=== PATIENT | male | born 1995 | race African-American/Black ===

== ENCOUNTER 2017-06-08 09:48 | Emergency (ER) | payer SELFPAY ==
[2017-06-08 09:52] VITALS: BP 91/84; PULSE 92; RESP 16; TEMP 98.4; O2SAT 99
== END 2017-06-08 10:24 | disposition left against medical advice (07) ==
DX: Z53.21 Procedure and treatment not carried out due to patient leaving prior to being seen by health care provider (principal)

== ENCOUNTER 2017-07-06 11:57 | Emergency (ER) | payer SELFPAY ==
[2017-07-06 12:03] VITALS: BP 96/67; PULSE 81; RESP 18; TEMP 97.9; O2SAT 97
--- NOTE | 2017-07-06 13:17 | EDPHY ---
H & P Smoking Status: Heavy smoker Time Seen by Provider: 07/06/17 13:02 HPI/ROS: CHIEF COMPLAINT: Right radial hand pain HISTORY OF PRESENT ILLNESS: 22-year-old male with prior history of right base of thumb injury a few months ago states that after he was wrestling with a friend the other evening he has been experiencing right 1st metacarpal and 2nd metacarpal pain reproducible with range of motion and positive snuffbox pain. No paresthesia. No sensory motor deficit. No discoloration. No fever no chills. PHYSICAL EXAM (Prior to examination, patient consented to physical exam, hands were washed and my usual and customary physical exam procedures followed) 1) GENERAL: Well-developed, well-nourished, alert and oriented. Appears to be in no acute distress. 2) HEAD: Normocephalic 3) HEENT: Pupils equal, round, reactive to light bilaterally. 4) LUNGS: Breathing comfortably. 5) MUSCULOSKELETAL: Tender to palpation anatomic snuffbox. Soft compartments. Normal coloration. 6) SKIN: normal coloration normal temperature 7) VASCULAR: pulses and cap refill present are brisk 8) NEUROLOGIC: Radial, ulnar, median nerve function intact with no deficits appreciated on exam DIFFERENTIAL DIAGNOSIS: in no particular order including but not limited to fracture, sprain, compartment syndrome Procedure: Splint A Velcro thumb spica splint was applied by ER auto body repair technician. After application of the splint I returned and re-examined the patient. The splint was adequately immobilizing the joint and distal to the splint the patient's circulation and sensation were intact. Patient shows no signs of compartment syndrome. Was given orthopedic precautions. (Will Simons) Constitutional: Initial Vital Signs Temperature (C) 36.6 C 07/06/17 12:01 Heart Rate 81 07/06/17 12:01 Respiratory Rate 18 07/06/17 12:01 Blood Pressure 96/67 L 07/06/17 12:01 O2 Sat (%) 97 07/06/17 12:01 O2 Delivery Mode Room Air Allergies/Adverse Reactions: No Known Allergies Allergy (Verified 07/06/17 12:00) Home Medications: Medication Instructions Recorded NK [No Known Home Meds] 07/06/17 MDM/Departure - [facility] Imaging Results: Imaging Impressions Wrist X-Ray 07/06/17 12:04 Impression: Negative right wrist radiographs. ED Course/Re-evaluation: I discussed limitations of x-ray, discussed that soft tissue injury, ligamentous injury, cannot be ruled out. Stressed the importance of follow-up with Hand surgery. He has been placed in a thumb spica, given referral information, recommend elevation, NSAIDs and NSAID precautions. He feels comfortable being discharged. Usual and customary orthopedic precautions instructions provided (Will Simons) I did not see this patient while he was in the emergency department. However his care was discussed with the PA while the patient was in the department. I agree with treatment plan and management (Ezequiel Burton) - Depart Disposition: Home, Routine, Self-Care Clinical Impression: Pain of right thumb Condition: Good Instructions: Wrist Sprain (ED) Additional Instructions: Return to the ER immediately if you experience discoloration, have worsening pain, numbness, tingling, or any other symptoms that concern you. If you received x-rays in the emergency department today, be advised, that ligamentous , tendon, muscular, and other non-bony injury cannot be fully ruled out. Try to keep your affected extremity elevated above the level of your chest, and keep cold packs on the affected area, for the next 48 hours. Referrals: Ray Gilmore MD [Medical Doctor] - 2-3 days without fail (Dr. Ray Gilmore is a hand surgeon)
== END 2017-07-06 13:10 | disposition home or self-care (01) ==
DX: S69.91XA Unspecified injury of right wrist, hand and finger(s), initial encounter (principal); F17.200 Nicotine dependence, unspecified, uncomplicated; X58.XXXA Exposure to other specified factors, initial encounter; Y99.8 Other external cause status; Y93.72 Activity, wrestling
CPT/HCPCS: L3807

== ENCOUNTER 2018-03-08 11:18 | Emergency (ER) | payer MEDICAID ==
[2018-03-08 11:26] VITALS: BP 98/73
--- NOTE | 2018-03-08 11:46 | EDPHY ---
General Time Seen by Provider: 03/08/18 11:40 Narrative: CHIEF COMPLAINT: Abdominal pain HISTORY OF PRESENT ILLNESS: Patient complains of left-sided abdominal pain that started yesterday morning when he awoke. Severe, left-sided pain. Constant duration. Worse with movement and palpation. Also worse really on his on his left side. Improves at rest and lying on right side. No fever. No nausea or vomiting. Does have some chills. No trauma or injury. No diarrhea but does report constipation of several days. No vomiting. No nausea. No previous abdominal pathology or abdominal surgeries. No other associated complaints or modifying factors REVIEW OF SYSTEMS: Ten systems reviewed and are negative unless otherwise noted in the HPI PCP: None SPECIALISTS: None PAST MEDICAL HISTORY: Denies any medical history PAST SURGICAL HISTORY: No surgical history. SOCIAL HISTORY: Reports occasional marijuana use. FAMILY HISTORY: Noncontributory EXAMINATION General Appearance: Alert, no distress Head: normocephalic, atraumatic Eyes: Pupils equal and round, no conjunctival pallor or injection ENT, Mouth: Mucous membranes moist Neck: Normal inspection, supple, non-tender Respiratory: Lungs are clear to auscultation Cardiovascular: Regular rate and rhythm. No murmur Gastrointestinal: Abdomen is soft and nontender. No tympany. No rigidity. No mass. No guarding. There is [id number] tenderness in the left quadrants. Bowel sounds are symmetric in all 4 quadrants. Back: non-tender, no bony abnormalities Neurological: A&O, nonfocal, normal gait Skin: Warm and dry, no rash. No petechiae or purpura Extremities: Nontender, no pedal edema Psychiatric: Mood and affect normal DIFFERENTIAL DIAGNOSES: Including but not limited to constipation, colitis, diverticulitis, muscular strain, UTI, renal colic MDM: 11:45 a.m. Left-sided abdominal pain and constipation 24 hr. The patient does have tenderness to the left side that is moderate to severe. No CVA tenderness. Vital signs are within normal limits. I have ordered laboratory studies and a KUB to evaluate for constipation possible bowel obstruction. No vomiting. No acute distress. 12:15 p.m. CBC is relatively unremarkable with minimally decreased white blood cell count. Chemistry is within normal limits including lipase and liver function test. X -rays pending Radiology interpretation. 12:30 p.m. Patient re-evaluated. As I enter the room the patient was asking for his IV to be removed. He was verbalizing his dissatisfaction although this was abruptly different from my initial evaluation. I asked him to reconsider to discuss the possibility of CT scan to evaluate his abdominal pain. He refused. He was adamant about having his IV removed. I informed him that we would do so but we need to discussed risks and benefits. We discussed the risk of discharge home without further delineation of his abdominal pain. While I do suspect this is only constipation, he was very tender in the abdomen. I informed that I would like to obtain a CT scan of the abdomen pelvis but he is declining. He would like to be discharged home immediately. We discussed the risk of deterioration , sepsis, perforation. He is willing to assume this risk and would like to be discharged home with instructions of how to improve his constipation. SUPERVISION: This patient was independently evaluated without direct involvement of or examination by the attending physician. - Diagnostics Imaging Results: Imaging Impressions Abdomen X-Ray 03/08/18 11:46 Impression: 1. Moderate constipation, otherwise negative. - History Smoking Status: Former smoker - Objective Vital Signs: Initial Vital Signs Temperature (C) 97.5 F 03/08/18 11:23 Heart Rate 90 03/08/18 11:23 Respiratory Rate 18 03/08/18 11:23 Blood Pressure 98/73 L 03/08/18 11:23 O2 Sat (%) 99 03/08/18 11:23 O2 Delivery Mode Room Air Allergies/Adverse Reactions: No Known Allergies Allergy (Verified 03/08/18 11:23) Home Medications: Medication Instructions Recorded NK [No Known Home Meds] 07/06/17 Laboratory Results: Laboratory Results 03/08/18 11:42 03/08/18 11:42 03/08/18 03/08/18 11:42 11:42 WBC 3.71 10^3/uL L 10^3/uL (3.80-9.50) RBC 5.77 10^6/uL 10^6/uL (4.40-6.38) Hgb 15.7 g/dL g/dL (13.7-17.5) Hct 46.5 % % (40.0-51.0) MCV 80.6 fL L fL (81.5-99.8) MCH 27.2 pg L pg (27.9-34.1) MCHC 33.8 g/dL g/dL (32.4-36.7) RDW 12.6 % % (11.5-15.2) Plt Count 205 10^3/uL 10^3/uL (150-400) MPV 8.8 fL fL (8.7-11.7) Neut % (Auto) 60.4 % % (39.3-74.2) Lymph % (Auto) 29.6 % % (15.0-45.0) [place] % (Auto) 8.9 % % (4.5-13.0) Eos % (Auto) 0.5 % L % (0.6-7.6) Baso % (Auto) 0.3 % % (0.3-1.7) Nucleat RBC Rel Count 0.0 % % (0.0-0.2) Absolute Neuts (auto) 2.24 10^3/uL 10^3/uL (1.70-6.50) Absolute Lymphs (auto) 1.10 10^3/uL 10^3/uL (1.00-3.00) Absolute Monos (auto) 0.33 10^3/uL 10^3/uL (0.30-0.80) Absolute Eos (auto) 0.02 10^3/uL L 10^3/uL (0.03-0.40) Absolute Basos (auto) 0.01 10^3/uL L 10^3/uL (0.02-0.10) Absolute Nucleated RBC 0.00 10^3/uL 10^3/uL (0-0.01) Immature Gran % 0.3 % % (0.0-1.1) Immature Gran # 0.01 10^3/uL 10^3/uL (0.00-0.10) Sodium 139 mEq/L mEq/L (135-145) Potassium 4.0 mEq/L mEq/L (3.5-5.2) Chloride 100 mEq/L mEq/L (97-110) Carbon Dioxide 30 mEq/l mEq/l (22-31) Anion Gap 9 mEq/L mEq/L (8-16) BUN 11 mg/dL mg/dL (7-23) Creatinine 1.0 mg/dL mg/dL (0.7-1.3) Estimated GFR > 60 Glucose 74 mg/dL mg/dL (70-100) Calcium 9.0 mg/dL mg/dL (8.5-10.4) Total Bilirubin 0.7 mg/dL mg/dL (0.1-1.4) Conjugated Bilirubin 0.3 mg/dL mg/dL (0.0-0.5) Unconjugated Bilirubin 0.4 mg/dL mg/dL (0.0-1.1) AST 21 IU/L IU/L (17-59) ALT 34 IU/L IU/L (21-72) Alkaline Phosphatase 77 IU/L IU/L (38-126) Total Protein 7.5 g/dL g/dL (6.3-8.2) Albumin 3.7 g/dL g/dL (3.5-5.0) Lipase 42 IU/L IU/L (23-300) Departure - Departure Disposition: Home, Routine, Self-Care Clinical Impression: Abdominal pain Qualifiers: Abdominal location: unspecified location Qualified Code(s): R10.9 - Unspecified abdominal pain Constipation Qualifiers: Constipation type: unspecified constipation type Qualified Code(s): K59.00 - Constipation, unspecified Condition: Good Instructions: Polyethylene Glycol 3350 (By mouth), Magnesium Citrate (By mouth) , Constipation (ED) Additional Instructions: 1. I recommend that you return to emergency department to complete a workup. I strongly recommend the reconsider return to emergency department for further workup. 2. You did have evidence of constipation on x-ray. He may take over-the- counter MiraLax once daily for this. You may also take 1 bottle of magnesium citrate [id number]. Referrals: [facility],. [Clinic] - As per Instructions Zhen Culver DO [Doctor of Osteopathy] - As per Instructions
[2018-03-08 11:52] LABS: PLATELET COUNT 205 10^3/uL (150-400)
== END 2018-03-08 12:40 | disposition home or self-care (01) ==
DX: K59.00 Constipation, unspecified (principal); Z87.891 Personal history of nicotine dependence